=== PATIENT | male | born 1975 | race Hispanic/Latino ===

== ENCOUNTER 2023-09-29 12:49 | Outpatient (CLI) | payer OTHER | END 2023-09-29 12:50 | disposition home or self-care (01) | LOC: CSHCT 12:49 | PROVIDERS: ATTEND Family Medicine | DX: S69.92XD Unspecified injury of left wrist, hand and finger(s), subsequent encounter (principal); S62.022K Displaced fracture of middle third of navicular [scaphoid] bone of left wrist, subsequent encounter for fracture with nonunion; M87.88 Other osteonecrosis, other site ==